=== PATIENT | female | born 1965 | race Caucasian/White ===

== ENCOUNTER 2016-06-05 20:58 | Emergency (ER) | payer BC, OTHER ==
[~2016-06-05] VITALS: Ht 182.9 cm; Wt 91.6 kg
[2016-06-05 21:08] VITALS: BP 149/80
[2016-06-05 21:25] LABS: Urine Bilirubin Negative (Negative); Urine Blood 2+ /uL (Negative); Urine Ca Oxalate Crystal FEW (None Seen); Urine Color Yellow (Yellow); Urine Glucose Normal (Normal); Urine Ketone Negative (Negative); Urine Nitrite Negative (Negative); Urine RBC 121 /hpf (0 - 4); Urine Squamous Epithelial Cell FEW /hpf (<5); Urine Urobilinogen Normal (Negative); Urine pH 6.5 (5.0-8.0)
[2016-06-05 21:52] LABS: Albumin 4.1 g/dL (3.4-5.0); BUN/Creatinine Ratio 9.1; Calcium 8.9 mg/dL (8.5-10.1); Potassium 3.5 mmol/L (3.5-5.1)
[2016-06-05 21:54] LABS: Basophils # (auto) 0 uL; Basophils % (auto) 0.3 % (0.0-2.0); Bilirubin, Total 0.4 mg/dL (0.2-1.0); DEFINITIVE VIEW TRANSMISSION; Eosinophils # (auto) 0.1 uL; Eosinophils % (auto) 1.2 % (0.0-7.0); Hemoglobin 11.6 g/dL (12.2-16.2); Lymphocytes # (auto) 1.3 uL; Lymphocytes % (auto) 17.8 % (10.0-50.0); Mean Corpuscular Hemoglobin 25.9 pg (28.0-32.0); Mean Corpuscular Hgb Conc. 32.2 g/dL (32.0-36.0); Mean Corpuscular Volume 80.3 fL (80.0-100.0); Mean Platelet Volume 8.2 fL (7.4-10.4); Monocytes # (auto) 0.6 uL; Monocytes % (auto) 7.8 % (0.0-12.0); Neutrophils # (auto) 5.3 uL; Neutrophils % (auto) 72.9 % (37.0-80.0); Platelet Count (auto) 377 10^3/uL (140-450); Total Protein 7.7 g/dL (6.4-8.2); White Blood Cell 7.2 10^3/uL (4.4-10.8)
[2016-06-05 22:16] LABS: INR 1.01 (0.9-1.15); Partial Thromboplastin Time 23.5 sec (22.64-33.71); Prothrombin Time 10.9 sec (9.37-12.3)
== END 2016-06-05 22:32 | disposition left against medical advice (07) ==
LOC: ER 21:03
DX: R10.9 Unspecified abdominal pain (principal); R11.2 Nausea with vomiting, unspecified; Z53.21 Procedure and treatment not carried out due to patient leaving prior to being seen by health care provider
CPT/HCPCS: 36415; 80053; 81001; 81025; 82150; 83690; 85025; 85610; 85730